=== PATIENT | male | born 1945 | race Caucasian/White ===

== ENCOUNTER 2020-05-04 12:10 | Emergency (ER) | payer MEDICARE ==
[~2020-05-04 12:10] MED LIST: ADULT GLYCERIN1 EACH PR; ASPIR 8181 MG PO; ASPIRIN EC325 MG PO; ATORVASTATIN CA20 MG PO; BACTRIM DS TAB1 EACH PO; COLACE 100MG C100 MG PO; LANTUS100 UNIT/1 SQ; LIPITOR TAB 1010 MG PO; LORTAB 7.5-3251 EACH PO; METAMUCIL PACK3.4 GM PO; MILK OF MA400 MG/5 M PO; PROTONIX40 MG PO; VIBRAMYCIN100 MG PO
[2020-05-04 12:53] LABS: HEMOGLOBIN 13.5 gm/dl (14.0-17.5); RED BLOOD COUNT 4.3 M/UL (4.20-5.50); WHITE BLOOD COUNT 9.3 K/UL (4.5-11.0)
[2020-05-04 13:12] LABS: BUN/CREATININE RATIO 27 (0-10)
== END 2020-05-04 14:58 | disposition home or self-care (01) ==
LOC: ER1 12:10
PROVIDERS: Emergency Medicine
DX: R31.9 Hematuria, unspecified (principal); R33.9 Retention of urine, unspecified; D64.9 Anemia, unspecified; E11.65 Type 2 diabetes mellitus with hyperglycemia; Z86.73 Personal history of transient ischemic attack (TIA), and cerebral infarction without residual deficits
CPT/HCPCS: 51702; 80053; 81001; 82962; 85025; 85610; 85730; 96374; 99283

== ENCOUNTER 2020-07-13 14:27 | Emergency (ER) | payer MEDICARE | END 2020-07-13 17:18 | disposition home or self-care (01) | LOC: ER1 14:27 | DX: R11.10 Vomiting, unspecified (principal); E11.9 Type 2 diabetes mellitus without complications; I25.2 Old myocardial infarction; I25.10 Atherosclerotic heart disease of native coronary artery without angina pectoris; Z86.73 Personal history of transient ischemic attack (TIA), and cerebral infarction without residual deficits | CPT/HCPCS: 51702; 99284 ==